=== PATIENT | female | born 1975 | race Caucasian/White ===

== ENCOUNTER → 2021-06-01 07:44 | Outpatient (CLI) | payer OTHER, SELFPAY ==
--- NOTE | ~2021-06-01 | MR_ITS ---
EXAMINATION: MR brain/brain stem wo/w con EXAM DATE: 06/01/2021 08:38 INDICATION: Headaches. TECHNIQUE: Magnetic resonance imaging (MRI) of the brain/brain stem obtained without contrast. Sagit mao T1, axial diffusion, gradient echo (T2*), T1, T2, FLAIR sequences obtained. Patient was then inj ected with 17 cc intravenous Multihance contrast. Axial and coronal postcontrast T1 weighted sequence s obtained. There is no prior study for comparison. FINDINGS: There are no areas of restricted diffusion to suggest acute infarction. There is no acute hemorrhage seen on the T2*, a hemosiderin sensitive sequence. No intraparenchymal brain mass. The ve ntricles are normal in size. There are no extra-axial collections. Flow voids are seen in the cereb ral arteries on the T2-weighted sequences consistent with their expected patency. The orbits are unr emarkable. Soft tissue is unremarkable. IMPRESSION: 1. Unremarkable brain MRI examination. Reviewed, dictated and finalized at location G.
[2021-06-01 08:19] LABS: Estimated Glomerular Filt Rate > 60
== END ==
PROVIDERS: PCP Internal Medicine; Visit Provider Physician Assistant Medical
DX: R51.9 Headache, unspecified (principal)
CPT/HCPCS: 70553; A9577

== ENCOUNTER 2024-10-29 06:07 | Day surgery (SDC) | payer OTHER, SELFPAY ==
[2024-10-20 14:30] VITALS: BMI 32.3
--- OUTSIDE RECORDS SUMMARY | 2024-10-29 06:50 | XMS_ITS | Clinical Summary ---
Author Organization [facility] Address [address] [place] [id number] Care Team Providers Care Materials Engineer Name Role Phone None, Provider Primary Care Provider Unavaila ble Social History Tobacco Use Types Packs/Day Years Used Date Smoking Tobacco: Never Assessed Comments Unknown Sex and Gender Information Value Date Recorded Sex Assigned at Not on file Legal Sex Female 4:35 PM CDT Gender Identity Not on file Sexual Orientation Not on file Last Filed Vital Signs Vital Sign Reading Time Taken Comments Blood Pressure 124/76 06/14/2012 12:25 PM CDT Pulse 104 06/14/2012 12:25 PM CDT Temperature - - Respiratory Rate - - Oxygen Saturation - - Inhaled Oxygen Concentration - - Weight - - Height - - Body Mass Index - - Plan of Treatment Health Maintenance Due Date Last Done Comments Cervical Cancer Screening Pa p Smear (Age 30 to 64) Every 3 Years 1973 Colorectal Cancer Screening Colonoscopy (10 Years) 1973 Annual Physical 1976 Hepatitis C 1991 DTaP, Tdap and Td Vaccines ( 1 - Tdap) 1992 Hepatitis B Vaccines (1 of 3 - 19+ 3-dose series) 1992 Cervical Cancer Screening Pa p with HPV Testing (Age 30 to 64) Every 5 Years 2003 Cervical Cancer Screening with HPV 2003 Mammogram Screening 2013 Pneumococcal Vaccine: 50+ Ye ars (1 of 1 - PCV) 2023 Zoster Vaccines (1 of 2) 2023 COVID-19 Vaccine ( - 2023-2 5 season) 2023 Meningococcal B Vaccine Aged Out No l onger eligible based on patient's age to complete this topic Meningococcal Vaccine Aged Out No susan sadie eligible based on patient's age to complete this topic RSV Immunizations Under 20 Months Aged Out No longer eligible based on patient's age to complete this topic Insurance [facility] [place] [address] Care Teams Materials Engineer Relationship Specialty Start Date End Date None, Provider, PCP - General 10/27/20
--- NOTE | 2024-10-29 06:57 | P.OP_ITS ---
Procedure Note - Detailed Date of Procedure 10/29/24 Pre-op Diagnosis Right Cubital Tunnel Syndrome Post-op Diagnosis Same Procedure Performed right CuTR Surgeon Hoda De Dios MD Fire Control Technician B aniya youssef pa-c Anesthesia MAC Description of Procedure INFORMED CONSENT:The patient was seen and examined and marked in the pre-op area.? The patient signed the consent form. PROCEDURE IN DETAIL: The patient taken back to OR on the stretcher in supine position. Time out performed with anesthesia, surgeon and staff agreeing on patient's name site and surgery to be performed SCDs were placed on the lower extremities and inflated A tourniquet was placed on {right} upper extremity and antibiotics given IV After anesthesia administered sedation I injected {6}cc 1%lido with epi and 0.5% marcaine plain at the operative site The?{right upper extremity}?was prepped and draped in sterile fashion the??{right upper extremity} was??exsanguinated with Esmarch bandage and tourniquet inflated to 250mmHg I next proceeded with making a longitudinal incision between two heads for flexor carpi ulnaris at end of {right} cubital tunnel with 15 blade scalpel.? Littler scissors were used to spread down to FCU fascia.? An incision was made in FCU fascia and ulnar nerve identified exiting cubital tunnel.? I proceeded with complete retrograde release of the cubital tunnel including 7cm proximal for the intermuscular septum.? The nerve appeared healthy with visible vaso nervorum.? There was no subluxation on full elbow range of motion. ? I irrigated with normal saline and closure with 4-0 monocryl for dermis and subcuticular. The incision was covered with Dermabond then 4x4s, kaye, and a posterior elbow splint for patient safety, security and comfort and secured with krishna bandages after the tourniquet was let down noting the hand was warm and well perfused.? Patient awaken from anesthesia and transferred to recovery in stable condition Complications - none EBL- 1cc Disposition - home in stable condition Aniya Youssef PA-C was essential for positioning, retraction, closure and dres sing placement [facility] Billing Surgery - Charge Forward: Surgery Billing ([id number] for aniya)
--- NOTE | 2024-10-29 06:57 | WPDHPUPDATE1 ---
History and Physical Update Update Date/Time: 10/29/24 06:57 Patient seen and examined in pre-operative holding area. No interval change in medical history or symptoms. Patient recalls previous discussion of benefits and alternatives to procedure. Continues to desire to proceed with right cubital tunnel release. Reviewed procedure, post-op expectations and risks including but not limited to bleeding, infection, injury to tendon/nerve/vessel, decreased hand function, stiffness, RSD, no change or worsening of symptoms. I discussed the possible use of assistants and their participation in the case. Patient stated understanding and signed the consent form wishing to proceed.
[2024-10-29 07:14] VITALS: BP 112/86; PULSE 88; RESP 16; TEMP 36.6; O2SAT 99; BMI 33.3
--- NOTE | 2024-10-29 07:34 | P.PNAN_ITS ---
Anes - Initial Pre Proc Eval Procedure: Operation Date: 10/29/24 08:15 Proposed Procedures p Right Cubital Tunnel Release - Hoda De Dios MD Date/Time: 10/29/24 07:34 Surgeon: Hoda De Dios MD Pre Op Diagnosis: Right Cubital Tunnel Syndrome Patient Data Age: 49 Gender: F Height: 1.68 m Weight: 93.8 kg Last Vital Signs Temp 97.9 F 10/29/24 07:14 Pulse 88 10/29/24 07:14 Resp 16 10/29/24 07:14 BP 112/86 10/29/24 07:14 Pulse Ox 99 10/29/24 07:14 O2 Del Method Room Air 10/29/24 07:14 Allergies Allergy/AdvReac Type Severity Reaction Status Date / Time metoclopramide (From Reglan) AdvReac Mild Hives Verified 10/29/24 07:01 Home Medications ?Medication ?Instructions ?Recorded ?Confirmed ?Type sumatriptan succinate 25 mg tablet 25 mg PO ONCE PRN m igraine headache 05/18/24 10/29/24 History galcanezumab-gnlm 120 mg/mL 120 mg subcut MONTHLY #3 m L 10/01/24 10/29/24 Rx subcutaneous pen injector (Emgality Pen) alprazolam 0.5 mg tablet 0.5 mg PO DIRECTED PRN an xiety 10/20/24 10/29/24 History dextroamphetamine-amphetamine 30 30 mg PO DAILY 10/29/24 History mg tablet (Adderall) Patient hx anesthesia problems: none Family hx anesthesia problems: none Results Review: All pre-operative results and documents have been reviewed as part of the pre-operative evaluation. [facility] Past Medical History Medical History Migraines Arthritis ADD (attention deficit disorder) Surgical History Surgical History History of cholecystectomy (~2005) H/O foot surgery (~1999) Bilateral foot surgeries Family History Family History Father Hypertension Mother Hypertension Thyroid disorder Sibling Testicular cancer Depression Grandparent Macular degeneration Grandparent Throat cancer Lung cancer Social History Social History (Updated 10/26/24 @ 08:17 by Iesha Michaud) Social History: 02/21/24 very confident with medical forms 03/09/24 patient declined SDOH Caffeine-none Smoking status: Former smoker Tobacco type: cigarettes Smoking end date: 06/13/03 Alcohol intake: current Drinks per week: 3 Alcohol use details: wine Substance use: never Substance use type: does not use Do You Feel Safe in your Home?: Yes Lack of Transportation: No Lack of Food: Never True Current Housing: Decline to Answer Concerned About Future Housing: Decline to Answer Difficulty Paying Gas/Electric Bills: Decline to Answer Difficulty Paying for Meds: Decline to Answer Currently Unemployed: Decline to Answer Education: Master's Degree or Higher Difficulty w/ Childcare or Family Care: No Living arrangements: with family Occupation/Education: occupation 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 Gender identity (if verbalized by the patient): Female Spiritual care concerns: No Agree to blood products: No Anes - Eval Final PreProcedure Day of Procedure 10/29/24 07:34 Heart: regular rate and rhythm Lungs: clear to auscultation Airway: Mallampati scale class II Neurological: alert and oriented Last oral intake: >/= 8 hours ASA classification: II Anesthetic plan: proceed Anesthesia type and monitoring: monitored anesthesia care Results Review: All pre-operative results and documents have been reviewed as part of the pre- operative evaluation. Informed Consent: The patient's anesthetic plan and its attendant risks and benefits were discussed with the patient/family/POA. Questions were solicited and answers provided to the satisfaction of the patient/family/POA.
[2024-10-29] MEDS: LACTATED RINGERS 1,000 ML 30 ML IV CONT (07:40)
--- NOTE | 2024-10-29 07:47 | SUR.PREOP ---
PT REFUSING TO TAKE PO TYLENOL. STATES SHE CANNOT SWALLOW ROUND PILL ONLY CAPSULES. DR LARSON NOTIFIED AT BEDSIDE. PT CAN TAKE HE OWN TYLENOL CAPSULES AFTER SURGERY.
[2024-10-29] MEDS: BUPivacaine HCL 0.5% 10 ML AMP INFILTRATE (08:12)
[2024-10-29] MEDS: LIDO 1%/EPINEPHRINE 1:100,000 20 ML VIAL 3.5 ML INFILTRATE (08:13)
[2024-10-29 08:24] VITALS: BP 99/63; PULSE 75; RESP 16; O2SAT 97
[2024-10-29 08:34] VITALS: BP 99/69; PULSE 80; RESP 16; O2SAT 99
[2024-10-29 08:44] VITALS: BP 104/69; PULSE 72; RESP 16; O2SAT 100
== END 2024-10-29 08:58 | disposition home or self-care (01) ==
PROVIDERS: PCP Nurse Practitioner Family; Visit Provider Plastic Surgery
PROC: (CPT 64718; principal; 2024-10-29 08:15)
DX: G56.21 Lesion of ulnar nerve, right upper limb (principal)
CPT/HCPCS: 64718